=== PATIENT | female | born 1955 | race Caucasian/White ===

== ENCOUNTER → 2016-11-10 | Outpatient (CLI) | payer BC ==
--- NOTE | 2016-11-11 08:49 | US ---
EXAM DESCRIPTION: Extremity,Lower LT Arteries CLINICAL HISTORY: 61 years Female, CALF PN, PN IN LEFT LEG, VENOUS INSUFFICIENCY (CHRONIC)(PERIPHERA COMPARISON: None. TECHNIQUE: 2-D grayscale and color arterial duplex Doppler evaluation of the left lower extremity is performed. FINDINGS: Mild scattered calcified plaque throughout the arterial vasculature are seen. There is biphasic to triphasic waveform flow throughout the left lower extremity with no focal areas of elevated velocity or arterial occlusion. IMPRESSION: Mild atherosclerotic disease of the left lower extremity without ultrasound evidence of arterial flow limiting stenosis or occlusion. Electronically signed by: Alejo Huertas MD 11/11/2016 8:48 AM CDT
--- NOTE | 2016-11-11 09:59 | US ---
EXAM DESCRIPTION: Venous,Lower Extremity LT CLINICAL HISTORY: CALF PN, PN IN LEFT LEG, VENOUS INSUFFICIENCY (CHRONIC)(PERIPHERA COMPARISON: None. TECHNIQUE: 2D grayscale and color venous duplex Doppler evaluation of the lower extremity are obtained from groin to calf. FINDINGS: There is normal flow, augmentation to flow, and compressibility of the deep venous vasculature of the left lower extremity from the common femoral vein to the distal superficial femoral vein. There is hypoechoic thrombus and noncompressibility of the left popliteal vein, peroneal vein, and posterior tibial veins. IMPRESSION: Ultrasound evidence of deep venous thrombosis of the left popliteal, posterior tibial, and peroneal veins. The pathology technologist contacted Dr. Khalil regarding findings on this exam at the time of study. Electronically signed by: Alejo Huertas MD 11/11/2016 9:58 AM CDT
== END | disposition home or self-care (01) ==
LOC: US 15:28
PROVIDERS: ATTEND Family Medicine
DX: M79.605 Pain in left leg (principal); I87.2 Venous insufficiency (chronic) (peripheral)

== ENCOUNTER → 2016-12-08 | Outpatient (CLI) | payer BC | END | disposition home or self-care (01) | LOC: GMAB 11:14 | PROVIDERS: ATTEND Family Medicine | DX: Z00.00 Encounter for general adult medical examination without abnormal findings (principal); E50.8 Other manifestations of vitamin A deficiency; E53.8 Deficiency of other specified B group vitamins ==

== ENCOUNTER → 2016-12-12 | Outpatient (CLI) | payer BC | END | disposition home or self-care (01) | LOC: GMAB 12:13 | PROVIDERS: ATTEND Family Medicine | DX: N39.0 Urinary tract infection, site not specified (principal) ==

== ENCOUNTER → 2016-12-26 | Outpatient (CLI) | payer BC | END | disposition home or self-care (01) | LOC: GMAB 10:09 | PROVIDERS: ATTEND Family Medicine | DX: N39.0 Urinary tract infection, site not specified (principal) ==

== ENCOUNTER → 2017-03-18 | Outpatient (CLI) | payer BC | END | disposition home or self-care (01) | LOC: GMA 14:51 | PROVIDERS: ATTEND Nurse Practitioner Family | DX: N89.8 Other specified noninflammatory disorders of vagina (principal); N95.8 Other specified menopausal and perimenopausal disorders ==

== ENCOUNTER → 2017-03-25 | Outpatient (CLI) | payer BC ==
--- NOTE | 2017-03-26 06:12 | CT ---
Procedure: CT ABDOMEN PELVIS WITHOUT THEN WITH IV CONTRAST Exam date: 03/25/2017 8:00 AM CDT Ordering Provider: RENATA CAMPBELL Clinical Indication: HEMATURIA Comparison: None Technique: Using a helical scanner, sequential axial imaging of the abdomen and pelvis were obtained following the administration of oral contrast and before and after IV contrast and oral. The exam extended from the level of the lung bases superiorly to the level of the pubic symphysis inferiorly. Delayed images through the renal collecting systems, ureters, and bladder were obtained. 3-D sagittal and coronal reconstructed images were obtained. Findings: The right kidney is normal in size and shape. The renal cortical enhancement is normal. Multilobulated nonobstructive renal calculus within the lower pole measuring up to 1.8 x 0.7 cm. There are no solid masses or hydronephrosis. Delayed images of the renal collecting system demonstrates no filling defects within the collecting system. The left kidney is normal in size and shape. The renal cortical enhancement is normal. Conglomeration of nonobstructing stones within the lower pole measuring 1.0 x 0.8 cm. There are no solid enhancing masses or hydronephrosis. Millimetric left renal cyst in the interpolar region. Delayed images of the renal collecting system demonstrates no filling defects within the collecting system. The bladder is normal in appearance. The lung bases are clear. No basilar consolidation or effusion. The liver is normal in size and density. Hepatic contour is normal. There are no hepatic masses. No intrahepatic ductal dilatation. Status post cholecystectomy. The spleen, pancreas, and adrenal glands are unremarkable. No pancreatic ductal dilatation. Aorta is normal in size and diameter. The IVC is normal in size and location. There is no lymphadenopathy in the abdomen, pelvis, or either inguinal region. The hollow viscera and mesentery are unremarkable. There is no acute skeletal lesion. Multilevel degenerative disc changes and facet arthropathy are seen throughout the lumbar spine. IMPRESSION: 1. Bilateral nonobstructive nephrolithiasis within the lower poles. Otherwise, nonacute evaluation of the urinary tract. 2. Otherwise, nonacute CT the abdomen and pelvis. 3. Other chronic incidental findings as above. Electronically signed by: Brigido Wayne MD 03/26/2017 6:10 AM CDT
== END | disposition home or self-care (01) ==
LOC: CT 07:58
PROVIDERS: ATTEND Urology
DX: R31.9 Hematuria, unspecified (principal)

== ENCOUNTER → 2017-03-31 | Outpatient (CLI) | payer BC | LOC: GMA 16:20 | DX: E34.8 Other specified endocrine disorders (principal) ==

== ENCOUNTER → 2017-04-08 | Outpatient (CLI) | payer BC ==
--- NOTE | 2017-04-09 09:43 | MRI ---
EXAM DESCRIPTION: Brain w/wo Contrast CLINICAL HISTORY: 259.9. Endocrine disorders. COMPARISON: None available TECHNIQUE: Multiplanar, multisequence pre and postcontrast imaging of the brain utilizing intravenous gadolinium. Additional multiplanar, multisequence dynamic pre and postcontrast imaging of the sellar region, dedicated pituitary protocol. FINDINGS: No hemorrhage, mass effect, diffusion restriction, or acute infarction is present. There is normal configuration of the ventricles and sulci. Mild generalized volume loss is present. Mild patchy T2/FLAIR hyperintensities are demonstrated in the supratentorial white matter. No abnormal parenchymal or leptomeningeal enhancement. The pituitary infundibulum is at the midline. The pituitary gland demonstrates homogeneous signal and minimally heterogeneous enhancement with no definitive MRI evidence for a pituitary adenoma. No abnormal extra-axial fluid collections are present. Normal flow voids are present. The calvarium is intact. Visualized paranasal sinuses and mastoid air cells are clear. IMPRESSION: 1. Essentially unremarkable MRI appearance of the pituitary gland. No definitive MRI evidence for a pituitary microadenoma. 2. Mild senescent changes. Electronically signed by: Nathan Saeed MD 04/09/2017 9:42 AM CDT
== END | disposition home or self-care (01) ==
LOC: MRI 06:43
PROVIDERS: ATTEND Nurse Practitioner Family
DX: E34.8 Other specified endocrine disorders (principal)

== ENCOUNTER → 2017-04-27 | Outpatient (CLI) | payer BC | END | disposition home or self-care (01) | LOC: GMAB 14:10 | PROVIDERS: ATTEND Family Medicine | DX: N39.0 Urinary tract infection, site not specified (principal) ==

== ENCOUNTER → 2017-04-27 | Outpatient (CLI) | payer BC ==
--- NOTE | 2017-04-27 12:52 | CT ---
Study: CT abdomen and pelvis. Indication: LLQ PAIN Technique: Noncontrast, venous, and delayed phase CT imaging of the abdomen and pelvis obtained after intravenous administration of contrast. This exam was performed according to our departmental dose-optimization program, which includes automated exposure control, adjustment of the mA and/or kV according to patient size and/or use of iterative reconstruction technique. Comparison: March 25, 2017. FINDINGS: Cholecystectomy clips. Mild nodularity of the liver contour suggesting cirrhosis. Lower chest, pancreas, spleen, adrenal glands, uterus, adnexa, and bladder unremarkable. Central nonobstructing bilateral renal calculi noted at the inferior poles. The largest in the right measures up to 5.7 mm. The largest on the left measures up to 8 mm. No hydronephrosis. Mild colonic diverticulosis. Stomach and small bowel unremarkable. Appendix not visualized. No free fluid. No free air. No pathologically enlarged lymphadenopathy. Atherosclerosis aorta. Degenerative changes of the spine noted. IMPRESSION: Persistent central nonobstructing renal calculi at the inferior poles of the bilateral kidneys. No hydronephrosis. Suspected cirrhosis. Correlation with liver function tests and serologies recommended. Additional stable findings as above. Electronically signed by: Ferdinand Mo MD 04/27/2017 12:51 PM CDT
== END | disposition home or self-care (01) ==
LOC: CT 11:59
PROVIDERS: ATTEND Family Medicine
DX: R10.32 Left lower quadrant pain (principal)

== ENCOUNTER → 2017-06-02 | Outpatient (CLI) | payer BC | END | disposition home or self-care (01) | LOC: LAB.O 15:16 | PROVIDERS: ATTEND Internal Medicine Gastroenterology | DX: K76.0 Fatty (change of) liver, not elsewhere classified (principal) ==

== ENCOUNTER → 2018-03-18 | Outpatient (CLI) | payer BC ==
--- NOTE | 2018-03-18 17:31 | US ---
Procedure: US PELVIS Exam Date: 03/18/2018 Ordering Provider: Carol Kiser Clinical Indication: ABN ENDOCRINE LAB TEST FINDING Comparison: 04/27/2017 CT abdomen pelvis Technique: Transabdominal ultrasound of the pelvis was obtained. Findings: The uterus measures 9.2 x 7.0 x 4.2 cm . There are 2 myometrial fibroids, largest measuring 2.9 cm. The endometrial complex measures 6 mm which is mildly thickened in a postmenopausal patient. There are no masses visualized. The right ovary measures 2.9 x 2.7 x 1.9 cm . There are no suspicious solid or cystic masses. The left ovary measures 1.9 x 2.7 x 1.8 cm . There are no suspicious solid or cystic masses. Flow is confirmed in both ovaries. No pelvic free fluid. Impression: 1. Fibroid uterus. 2. Endometrial complex is mildly thickened for a postmenopausal patient. No discrete mass visualized. 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 Electronically signed by: Hipolito Forte MD 03/18/2018 5:29 PM CDT
== END ==
LOC: LAB.O 07:15
PROVIDERS: ATTEND Internal Medicine Endocrinology, Diabetes & Metabolism
DX: R68.89 Other general symptoms and signs (principal); D25.9 Leiomyoma of uterus, unspecified; Z78.0 Asymptomatic menopausal state

== ENCOUNTER → 2018-03-19 | Outpatient (CLI) | payer BC ==
--- NOTE | 2018-03-19 08:11 | RAD ---
EXAM DESCRIPTION: Knee,Left Complete CLINICAL HISTORY: 62 years, Female, PAIN IN LEFT KNEE COMPARISON: None TECHNIQUE: Four views of the left knee FINDINGS: No fracture or dislocation. Bones appear normally mineralized with normal trabecular pattern. Narrowed appearance of medial compartment on frontal view. Mild spurring of the tibial spines and at the intercondylar notch. Deformity of the medial tibial metaphysis is consistent with an exostosis measuring approximately 1.4 cm in thickness and 3.5 cm at the base. Widened appearance of the fibular head is also noted which could be related to another exostosis. Lateral view shows normal position of the patella. Mild posterior inferior patellar spurring. No suprapatellar knee joint effusion. Normal contour of quadriceps and patellar tendons. No abnormal patellar tilt or subluxation on patellar sunrise view. Mild medial and lateral patellar spurring is present with mild spurring of the anterior medial femoral trochlea. IMPRESSION: Degenerative changes as described. Electronically signed by: Benitez Marion MD 03/19/2018 8:10 AM CDT
--- NOTE | 2018-03-19 08:14 | RAD ---
EXAM DESCRIPTION: Pelvis CLINICAL HISTORY: 62 years Female, PAIN IN LEFT HIP COMPARISON: Previous x-ray pelvis July 18, 2016 FINDINGS: Spurring is seen at the lateral margins of the acetabulum bilaterally right more than left. Proximal femurs appear intact. Intact appearance of the bones of the pelvis. Mild degenerative changes at the SI joints. Transitional lumbosacral vertebrae is seen with the left transverse process forming pseudoarticulation with the upper left sacral ala. Mild sclerosis at this pseudoarticulation is seen. Calcifications in the pelvis are likely phleboliths. Compared to previous study, no change is seen. IMPRESSION: Negative for fracture. Electronically signed by: Benitez Marion MD 03/19/2018 8:12 AM CDT
== END ==
LOC: LAB.O 07:15
PROVIDERS: ATTEND Internal Medicine Endocrinology, Diabetes & Metabolism
DX: M25.552 Pain in left hip (principal); M25.551 Pain in right hip; M25.562 Pain in left knee; R68.89 Other general symptoms and signs; Z78.0 Asymptomatic menopausal state

== ENCOUNTER → 2018-05-24 | Outpatient (CLI) | payer BC | LOC: LAB.O 07:26 | PROVIDERS: ATTEND Internal Medicine Endocrinology, Diabetes & Metabolism | DX: E27.9 Disorder of adrenal gland, unspecified (principal); R68.89 Other general symptoms and signs; R94.5 Abnormal results of liver function studies ==

== ENCOUNTER → 2018-11-10 | Outpatient (CLI) | payer BC ==
--- NOTE | 2018-11-11 11:18 | RAD ---
EXAM DESCRIPTION: Pelvis CLINICAL HISTORY: 63 years Female, PAIN IN RIGHT HIP COMPARISON: March 19, 2018 FINDINGS: The bony pelvic ring is intact with no fracture or deformity. A transitional segment at the lumbosacral junction is incidentally noted. No destructive process or fracture or deformity of the pelvis noted. Mild marginal osteophyte formation at the lateral margins of the hips is apparent. IMPRESSION: Essentially negative pelvis one view. Electronically signed by: Jose M Paredes MD 11/11/2018 11:15 AM CDT
--- NOTE | 2018-11-11 11:19 | RAD ---
EXAM DESCRIPTION: Hip,Right 2 Views CLINICAL HISTORY: PAIN IN RIGHT HIP COMPARISON: Prior 2016 examination of the opposite left hip TECHNIQUE: AP/frog leg lateral FINDINGS: Two views of the right hip demonstrate hypertrophic changes at the lateral acetabular margin with preserved joint space and mild irregularity of the acetabular articular roof without significant cystic changes or deformity of the femoral head. The bones are well-mineralized. Incidental note of modest inferior SI joint degenerative arthropathy also noted. IMPRESSION: Modest degenerative changes and hypertrophic changes at the lateral acetabular rim, slightly more prominent than seen the opposite left hip two years earlier. Electronically signed by: Jose M Paredes MD 11/11/2018 11:16 AM CDT
== END ==
LOC: RAD 08:13
PROVIDERS: ATTEND Orthopaedic Surgery
DX: M12.851 Other specific arthropathies, not elsewhere classified, right hip (principal); M25.551 Pain in right hip

== ENCOUNTER → 2019-03-24 | Outpatient (CLI) | payer BC | LOC: GMAE 10:40 | PROVIDERS: ATTEND Family Medicine | DX: Z00.00 Encounter for general adult medical examination without abnormal findings (principal) ==

== ENCOUNTER → 2020-04-19 | Outpatient (CLI) | payer BC | LOC: GMAE 10:15 | PROVIDERS: ATTEND Family Medicine | DX: I10 Essential (primary) hypertension (principal) ==